=== PATIENT | female | born 1995 | race Caucasian/White ===

== ENCOUNTER 2020-11-19 10:03 | Emergency (ER) | payer OTHER ==
[2020-11-19 10:14] VITALS: BP 123/80; PULSE 94; TEMP 98.3; BMI 22.0
[2020-11-19 10:48] LABS: BASO % 0.2 % (0-2.0); EOS % 0.4 % (0-4.5); HEMATOCRIT 37.6 % (32.4-45.2); HEMOGLOBIN 12.6 GM/dL (10.7-15.3); MCH 28.2 pg (25.7-33.7); MCHC 33.5 g/dl (32.0-36.0); MEAN CELL VOLUME 84.3 fl (80-96); MEAN PLT VOLUME 8.4 fl (7.5-11.1); MONO % 5.3 % (3.8-10.2); NEUT % 73.1 % (42.8-82.8); PLATELET COUNT 241 K/MM3 (134-434); RBC 4.47 M/mm3 (3.60-5.2); RDW 14.2 % (11.6-15.6); WHITE BLOOD COUNT 7.3 K/mm3 (4.0-10.0)
[2020-11-19 10:54] LABS: EPI CELLS >36 /uL (0-25.1); HYALINE CASTS 11 /uL (0-3.1); URINE APPEARANCE CLOUDY; URINE BACTERIA 5394 /uL (0-1359); URINE BILIRUBIN NEGATIVE (NEGATIVE); URINE COLOR YELLOW; URINE GLUCOSE (UA) NEGATIVE (NEGATIVE); URINE KETONE NEGATIVE (NEGATIVE); URINE LEUK ESTERASE NEGATIVE (NEGATIVE); URINE NITRITE NEGATIVE (NEGATIVE); URINE PROTEIN NEGATIVE (NEGATIVE); URINE RBC 29 /uL (0-23.9); URINE UROBILINOGEN 0.2 mg/dL (0.2-1.0)
[2020-11-19 13:43] LABS: URINE WBC 145 /uL (0-25.8)
== END 2020-11-19 14:58 | disposition home or self-care (01) ==
LOC: JER 10:03
DX: O26.891 Other specified pregnancy related conditions, first trimester (principal); B37.3 Candidiasis of vulva and vagina
CPT/HCPCS: 36415; 76817-TC; 81003; 84702; 85025; 86850; 86900; 86901; 87086; 87491; 87591; 99284-25

== ENCOUNTER 2020-11-21 10:42 | Emergency (ER) | payer OTHER ==
[2020-11-21 10:56] VITALS: BP 112/80; PULSE 96; TEMP 98; BMI 21.7
== END 2020-11-21 13:58 | disposition home or self-care (01) ==
LOC: JERFT 10:42
DX: R10.9 Unspecified abdominal pain (principal)
CPT/HCPCS: 36415; 76817-TC; 84702; 99284-25